=== PATIENT | male | born 1965 | race Caucasian/White ===

== ENCOUNTER 2017-01-11 18:46 | Emergency (ER) | payer OTHER ==
[2017-01-11 20:08] LABS: BASOPHIL % 0.7 % (0-2); PLATELET COUNT 65 x10^3mcL (130-400)
[2017-01-11 20:14] LABS: CARBON DIOXIDE 24.3 mmol/L (21-32); CHLORIDE SERUM 109 mmol/L (98-107); CREATININE SERUM 0.6 mg/dL (0.7-1.3); GFR1 > 60 mL/min; GLUCOSE SERUM 94 mg/dL (74-106); POTASSIUM SERUM 3.6 mmol/L (3.5-5.1); SODIUM SERUM 144 mmol/L (136-145)
[2017-01-11 20:18] LABS: ALKALINE PHOSPHATASE 113 U/L (46-116); ALT/SGPT 47 U/L (16-63); AST/SGOT 74 U/L (15-37); BILIRUBIN TOTAL 0.72 mg/dL (0.20-1.00); TOTAL PROTEIN, SERUM 6.9 g/dL (6.4-8.2)
[2017-01-11 20:25] LABS: ALBUMIN 2.6 g/dL (3.4-5.0)
[2017-01-12 00:09] VITALS: BP 121/79
== END 2017-01-12 00:09 | disposition home or self-care (01) ==
LOC: ED 18:46
PROVIDERS: Emergency Medicine
DX: S13.9XXA Sprain of joints and ligaments of unspecified parts of neck, initial encounter (principal); S43.421A Sprain of right rotator cuff capsule, initial encounter; S09.8XXA Other specified injuries of head, initial encounter; F10.129 Alcohol abuse with intoxication, unspecified; I10 Essential (primary) hypertension; E11.9 Type 2 diabetes mellitus without complications; V87.8XXA Person injured in other specified noncollision transport accidents involving motor vehicle (traffic), initial encounter; Y93.55 Activity, bike riding; Y99.8 Other external cause status; Y92.89 Other specified places as the place of occurrence of the external cause
CPT/HCPCS: 36415; G0480